=== PATIENT | male | born 1995 | race Caucasian/White ===

== ENCOUNTER 2017-01-06 13:33 | Emergency (ER) | payer SELFPAY ==
[~2017-01-06] VITALS: Ht 177.8 cm; Wt 72.0 kg
[2017-01-06 13:35] VITALS: Ht 177.8 cm; Wt 72.0 kg
--- NOTE | 2017-01-06 14:37 | ERD ---
ER Documentation Chief Complaint Date/Time DATE: 01/06/17 TIME: 14:32 Chief Complaint pt bib self with c/o abd pain x 20 days, HPI This is a 20-year-old male who presents to the emergency department today complaining of left-sided abdominal pain and rib pain for the past couple of weeks. Patient states that his side hurts worse when he coughs. States he has also been having a lot of fatigue. Denies any fevers or chills, sore throat, vomiting or diarrhea ROS All systems reviewed and are negative except as per history of present illness. Medications Home Meds Active Scripts Acetaminophen* (Tylophen*) 500 Mg Capsule, 1 CAP PO Q6H Y for PAIN AND OR ELEVATED TEMP, #30 CAP Prov:COREY MEDINA PA-C 01/06/17 Naproxen* (Naprosyn*) 500 Mg Tablet, 500 MG PO BID Y for PAIN AND/OR INFLAMMATION, #30 TAB Prov:COREY MEDINA PA-C 01/06/17 Allergies Allergies: Coded Allergies: No Known Allergy (Unverified , 01/06/17) Physical Exam Vitals Vital Signs Date Time Temp Pulse Resp B/P Pulse Ox O2 Delivery O2 Flow Rate FiO2 01/06/17 13:35 97.2 72 16 117/58 100 Physical Exam Const: No acute distress, nontoxic-appearing Head: Atraumatic Eyes: Normal Conjunctiva ENT: Ears TMs normal. Nose no drainage. Throat no erythema no exudate Neck: Full range of motion..~ No meningismus. Resp: Clear to auscultation bilaterally. No absent breath sounds. No wheezing. Tenderness palpation left side of ribs pain with trunk rotation to the left Cardio: Regular rate and rhythm, no murmurs Abd: Soft, mild left upper quadrant tenderness, non distended. Normal bowel sounds. No right lower quadrant pain. No left lower quadrant pain. Skin: No petechiae or rashes Neur: Awake and alert Psych: Normal Mood and Affect Result Diagram: 01/06/17 1436 01/06/17 1436 Results 24 hrs Laboratory Tests Test 01/06/17 14:36 White Blood Count 10.710^3/ul Red Blood Count 5.1410^6/ul Hemoglobin 15.2g/dl Hematocrit 46.2% Mean Corpuscular Volume 89.9fl Mean Corpuscular Hemoglobin 29.6pg Mean Corpuscular Hemoglobin Concent 32.9g/dl Red Cell Distribution Width 12.6% Platelet Count 93185^3/UL Mean Platelet Volume 9.9fl Neutrophils % 64.0% Lymphocytes % 26.3% Monocytes % 6.9% Eosinophils % 1.9% Basophils % 0.4% Nucleated Red Blood Cells % 0.0/100WBC Neutrophils # 6.810^3/ul Lymphocytes # 2.810^3/ul Monocytes # 0.710^3/ul Eosinophils # 0.210^3/ul Basophils # 0.010^3/ul Nucleated Red Blood Cells # 0.010^3/ul Sodium Level 142mmol/L Potassium Level 3.9mmol/L Chloride Level 102mmol/L Carbon Dioxide Level 26mmol/L Anion Gap 18 Blood Urea Nitrogen 12mg/dl Creatinine 0.75mg/dl Glucose Level 95mg/dl Calcium Level 9.6mg/dl Total Bilirubin 0.6mg/dl Direct Bilirubin 0.00mg/dl Indirect Bilirubin 0.6mg/dl Aspartate Amino Transf (AST/SGOT) 33IU/L Alanine Aminotransferase (ALT/SGPT) 31IU/L Alkaline Phosphatase 104IU/L Total Protein 8.0g/dl Albumin 5.0g/dl Globulin 3.00g/dl Albumin/Globulin Ratio 1.66 Lipase 69U/L Monoscreen Negative DIAGNOSTIC IMAGING REPORT Patient: CAROLINA MERINO : 1995 Age: 21 Sex: M MR #: [id number] DOS: 01/06/17 0000 Ordering MD: COREY MEDINA PA-C Location: [facility] Room/Bed: PROCEDURE: Chest Radiograph. CLINICAL INDICATION: Left pleuritic chest pain TECHNIQUE: Single frontal chest radiograph. COMPARISON: None available FINDINGS: The cardiomediastinal silhouette is within normal limits. There is no pneumothorax No infiltrate or effusion is seen. The bones are intact. IMPRESSION: 1. Unremarkable chest radiograph. RPTAT: AA .Gino Wilks MD, MD Date Time Electronically viewed and signed by .Gino Wilks MD, MD on 2016 15:20 .B/ CC: COREY MEDINA PA-C Procedures/[facility] This 21-year-old male who presents to the emergency department today complaining of left-sided rib pain that is worse with coughing as well as left upper abdominal pain and increased fatigue for the past couple of weeks Patient is afebrile and otherwise well appearing however given the patient's location of pain, his increased fatigue I did obtain a chest x-ray as well as laboratory work and a Monospot Chest x-ray is unremarkable. Low suspicion for pneumonia, PE, pleural effusion , abscess, pneumothorax Monospot is negative Laboratory work shows no elevated white blood cell count. He is not anemic. Platelets are within normal limits. Electrolytes are within normal limits. Liver function is within normal limits. Lipase is within normal limit. Patient symptoms at this time was consistent with costochondritis. Patient has fatigue of uncertain etiology. Patient is afebrile and otherwise well- appearing. Low suspicion for sepsis, severe acute bacterial infection, mononucleosis, meningitis, hypothyroidism. Patient will be given a prescription for Naprosyn and Tylenol. At this time the patient is stable for discharge and outpatient management. Patient should follow up with their PCP in the next 1-2 days. They may return to the emergency department sooner for any persistent or worsening of symptoms. Patient understood and agreed with the plan. Departure Diagnosis: Primary Impression: Abdominal pain Abdominal location: left upper quadrant Qualified Code: R10.12 - Left upper quadrant pain Additional Impression: Fatigue Fatigue type: unspecified Qualified Code: R53.83 - Fatigue, unspecified type Condition: Fair COREY MEDINA PA-C Jan 06, 2017 14:37
[2017-01-06 14:41] LABS: ADD SCAN DIFF NO
[2017-01-06 14:44] LABS: BASOPHILS % 0.4 % (0.0-2.0); EOSINOPHILS # 0.2 10^3/ul (0.0-0.5); EOSINOPHILS % 1.9 % (0.0-7.0); HEMATOCRIT 46.2 % (42.0-52.0); HEMOGLOBIN 15.2 g/dl (14.0-18.0); LYMPHOCYTES # 2.8 10^3/ul (0.8-2.9); LYMPHOCYTES % 26.3 % (15.0-51.0); MEAN CORPUSCULAR HEMOGLOBIN 29.6 pg (29.0-33.0); MEAN CORPUSCULAR HGB CONC 32.9 g/dl (32.0-37.0); MEAN CORPUSCULAR VOLUME 89.9 fl (82.0-101.0); MEAN PLATELET VOLUME 9.9 fl (7.4-10.4); MONOCYTE # 0.7 10^3/ul (0.3-0.9); MONOCYTES % 6.9 % (0.0-11.0); NEUTROPHIL # 6.8 10^3/ul (1.6-7.5); PLATELET COUNT 310 10^3/UL (140-415); RED BLOOD COUNT 5.14 10^6/ul (4.70-6.10); RED CELL DISTRIBUTION WIDTH 12.6 % (11.5-14.5); WHITE BLOOD COUNT 10.7 10^3/ul (4.8-10.8)
[2017-01-06 15:02] LABS: POTASSIUM 3.9 mmol/L (3.5-5.1)
[2017-01-06 15:04] LABS: ALBUMIN/GLOBULIN RATIO 1.66; BILIRUBIN,INDIRECT 0.6 mg/dl (0-1.1); BILIRUBIN,TOTAL 0.6 mg/dl (0.2-1.3); CREATININE 0.75 mg/dl (0.61-1.24)
[2017-01-06 15:05] LABS: CALCIUM 9.6 mg/dl (8.4-10.2)
--- NOTE | 2017-01-06 15:20 | RADRPT ---
PROCEDURE: Chest Radiograph. CLINICAL INDICATION: Left pleuritic chest pain TECHNIQUE: Single frontal chest radiograph. COMPARISON: None available FINDINGS: The cardiomediastinal silhouette is within normal limits. There is no pneumothorax No infiltrate or effusion is seen. The bones are intact. IMPRESSION: 1. Unremarkable chest radiograph. RPTAT: AA .Gino Wilks MD, MD Date Time Electronically viewed and signed by .Gino Wilks MD, on 01/06/2017 15:20 .B/
[2017-01-06] MEDS ORDERED: NAPR-260 PO (15:33)
[2017-01-06] MEDS ORDERED: ACET500C5 PO (15:33)
== END 2017-01-06 15:45 | disposition home or self-care (01) ==
LOC: FTE 13:33
DX: R10.12 Left upper quadrant pain (principal); R53.83 Other fatigue
CPT/HCPCS: 36415; 71010; 80053; 83690; 85025; 86308